=== PATIENT | male | born 1965 | race African-American/Black ===

== ENCOUNTER → 2017-01-15 | Emergency (ER) | payer MEDICAID, OTHER ==
[~2017-01-15] VITALS: Ht 170.2 cm; Wt 72.6 kg
[~2017-01-15] MED LIST: GUAIFENESIN1200 MG PO; MULTIVITAMINS1 EAC2 ORAL; PROMETHAZINE-C118 M1 ORAL; TYLENOL EXTRA500 MG ORAL; ZANTAC150 MG ORAL
[2017-01-15 11:39] VITALS: BP 125/74
[2017-01-15 13:15] LABS: BASOPHILS % (AUTO) 0.9 % (0.0-2.0); EOSINOPHILS % (AUTO) 1.9 % (0.0-3.0); MEAN CORPUSCULAR HEMOGLOBIN 29.2 PG (27.0-31.0); MEAN CORPUSCULAR HGB CONC 32.7 G/DL (32.0-36.0); MEAN CORPUSCULAR VOLUME 89 FL (80-99); MEAN PLATELET VOLUME 5.4 FL (6.5-10.1); MONOCYTES % (AUTO) 6.8 % (1.0-10.0); NEUTROPHILS % (AUTO) 59.4 % (45.0-75.0); PLATELET COUNT 283 K/UL (150-450); RED BLOOD COUNT 4.92 M/UL (4.70-6.10); RED CELL DISTRIBUTION WIDTH 12.6 % (11.6-14.8); WHITE BLOOD COUNT 7.4 K/UL (4.8-10.8)
[2017-01-15 13:32] LABS: ALANINE AMINOTRANSFERASE 18 U/L (3-41); ALBUMIN/GLOBULIN RATIO 1.1 (1.0-2.7); ANION GAP 16 (5-15); ASPARTATE AMINO TRANSFERASE 19 U/L (5-40); CALCIUM 9.5 mg/dL (8.6-10.2); CARBON DIOXIDE 25 mEQ/L (20-30); CHLORIDE 100 mEQ/L (98-107); GLOMERULAR FILTRATION RATE > 60 mL/min (>60); HEMOLYSIS 7; POTASSIUM 3.8 mEQ/L (3.4-4.9); SODIUM 141 mEQ/L (135-145); TOTAL PROTEIN 7.2 g/dL (6.6-8.7)
--- NOTE | 2017-01-15 13:35 | Emergency Room Report ---
History of Present Illness General Chief Complaint: General Complaint Source: Patient Present Illness HPI 51 YO male presents to the ED c/o numbness and tingling in the bilateral hands and feet described as burning sensation that is 10/10 severity x 1 month , denies tenderness. denies hx of trauma or fall, denies erythema, reports feeling cold at times, denies fatigue , dizziness or lethargy. Pt also reports sore throat, non-productive cough, and runny nose with increased phlegm and congestion without fevers x 2 days. daughter also has URI symptoms. pt. denies hx of DM, denies neck or back injury. Pt. also states hx of GERD, and needs refill of zantac as his heart burn symptoms have been coming more frequently at night he has burning epigastric discomfort that radiates up into his throat. pt also reports episodic knee and ankle swelling that has been going on for over 5 years, no increased temperature to palpation, no erythema, no fall or trauma. Denies CP other than previous GERD burning sensation, Palpitations, LOC, AMS, rashes dizziness, Changes in Vision, Sensation, paresthesias, or a sudden severe headache. Pt. denies cardiac disease. Allergies: Coded Allergies: No Known Allergies (Unverified , 11/14/16) Patient History Past Medical History: see triage record Past Surgical History: none Pertinent Family History: none Immunizations: UTD Reviewed Nursing Documentation: PMH: Agreed, PSxH: Agreed Nursing Documentation-PMH Past Medical History: No History, Except For Review of Systems All Other Systems: negative except mentioned in HPI Physical Exam Vital Signs Date Time Temp Pulse Resp B/P Pulse Ox O2 Delivery O2 Flow Rate FiO2 01/15/17 11:39 97.9 73 16 125/74 97 Room Air Sp02 EP Interpretation: reviewed, normal General Appearance: no apparent distress, alert, GCS 15, non-toxic Head: normocephalic, atraumatic Eyes: bilateral eye PERRL, bilateral eye normal inspection ENT: normal ENT inspection, normal pharynx, no angioedema, normal voice, TMs + canals normal, uvula midline, moist mucus membranes, nasal congestion, pharyngeal erythema, other - cobble stoning appearance, no exudates, clear rhinorrhea noted, no LAD Neck: normal inspection, full range of motion, no meningismus, no bony tend Respiratory: chest non-tender, lungs clear, normal breath sounds, no rhonchi, no respiratory distress, no accessory muscle use, no wheezing, speaking full sentences Cardiovascular #1: regular rate, rhythm, no edema Cardiovascular #2: 2+ radial (R), 2+ radial (L), 2+ dorsalis pedis (R), 2+ dorsalis pedis (L) Musculoskeletal: back normal, gait/station normal, normal range of motion, non- tender, no calf tenderness Neurologic: alert, oriented x3, responsive, motor strength/tone normal, sensory intact, cerebellar normal, normal gait, speech normal, other - equal database tester strength, equal pulses bilaterally, pt is NVI Psychiatric: judgement/insight normal, memory normal, mood/affect normal, no suicidal/homicidal ideation Skin: normal color, no rash, warm/dry, well hydrated, other - no pallor,good capillary refill, no evidence of PAD or venous stasis Lymphatic: no adenopathy Medical Decision Making PA Attestation Dr. Sheridan is my supervising Physician whom patient management has been discussed with. Diagnostic Impression: Primary Impression: Paresthesia of both feet Additional Impressions: Paresthesia of both hands Viral upper respiratory tract infection with cough ER Course Pt. presents to the ED c/o numbness and tingling in the bilateral hands and feet, in addition to sore throat, cough, and runny nose without fevers x 2 days. daughter also has URI symptoms. pt. denies hx of DM, denies neck or back injury. -Pt. also states hx of GERD, and needs refill of zantac as his heart burn symptoms have been coming more frequently at night. Ddx considered but are not limited to Neuropathy, paresthesia, electrolyte imbalance, cardiac dysrhythmia, stroke, DVT, cyanocobalamin deficiency. nerve palsy, neuritis, URI, pharyngitis, pneumonia Vital signs: are WNL, pt. is afebrile H&PE are most consistent with paresthesia, no evidence of anemia, or elevated glucose, no focal neurological deficit. there is evidence of post nasal drainage in the pharynx, mild erythema, no exudates, no fevers, lungs are CTA, no evidence of bacterial infeciton at this time. URI is most likely viral in etiology. ORDERS: -CMP: unremarkable no evidence of electrolyte abnormality or elevated glucose. -CBC: unremarkable no evidence of anemia ED INTERVENTIONS: -150mg Zantac - D/w pt. to follow up with Neurologist if conservative treatment does not relieve symptoms or for further evaluation. DISCHARGE: At this time pt. is stable for d/c to home. Will provide printed patient care instructions, and any necessary prescriptions. Care plan and follow up instructions have been discussed with the patient prior to discharge. Labs Test 01/15/17 12:45 White Blood Count 7.4 K/UL (4.8-10.8) Red Blood Count 4.92 M/UL (4.70-6.10) Hemoglobin 14.4 G/DL (14.2-18.0) Hematocrit 43.9 % (42.0-52.0) Mean Corpuscular Volume 89 FL (80-99) Mean Corpuscular Hemoglobin 29.2 PG (27.0-31.0) Mean Corpuscular Hemoglobin Concent 32.7 G/DL (32.0-36.0) Red Cell Distribution Width 12.6 % (11.6-14.8) Platelet Count 283 K/UL (150-450) Mean Platelet Volume 5.4 FL (6.5-10.1) Neutrophils (%) (Auto) 59.4 % (45.0-75.0) Lymphocytes (%) (Auto) 31.0 % (20.0-45.0) Monocytes (%) (Auto) 6.8 % (1.0-10.0) Eosinophils (%) (Auto) 1.9 % (0.0-3.0) Basophils (%) (Auto) 0.9 % (0.0-2.0) Sodium Level 141 mEQ/L (135-145) Potassium Level 3.8 mEQ/L (3.4-4.9) Chloride Level 100 mEQ/L (98-107) Carbon Dioxide Level 25 mEQ/L (20-30) Anion Gap 16 (5-15) Blood Urea Nitrogen 16 mg/dL (7-23) Creatinine 1.0 mg/dL (0.7-1.2) Estimat Glomerular Filtration Rate > 60 mL/min (>60) Glucose Level 99 mg/dL (74-106) Calcium Level 9.5 mg/dL (8.6-10.2) Total Bilirubin 0.4 mg/dL (0.0-1.2) Aspartate Amino Transf (AST/SGOT) 19 U/L (5-40) Alanine Aminotransferase (ALT/SGPT) 18 U/L (3-41) Alkaline Phosphatase 65 U/L (40-129) Total Protein 7.2 g/dL (6.6-8.7) Albumin 3.9 g/dL (3.5-5.2) Globulin 3.3 g/dL Albumin/Globulin Ratio 1.1 (1.0-2.7) Last Vital Signs Date Time Temp Pulse Resp B/P Pulse Ox O2 Delivery O2 Flow Rate FiO2 01/15/17 11:39 97.9 73 16 125/74 97 Room Air Disposition: HOME, SELF-CARE Condition: Stable Scripts Multivitamins* (MULTIVITAMINS*) 1 Each Tablet 1 TAB ORAL DAILY for 30 Days, #30 TAB 0 Refills Prov: Tamiko Zaldivar 01/15/17 Ranitidine Hcl* (ZANTAC*) 150 Mg Tablet 150 MG ORAL TWICE A DAY for 30 Days, #60 TAB Prov: Tamiko Zaldivar 01/15/17 Guaifenesin (Guaifenesin) 1,200 Mg Tab.er.12h 1200 MG PO BID, #14 TAB Prov: Tamiko Zaldivar 01/15/17 Codeine/Promethazine Hcl* (PROMETHAZINE-CODEINE SYRUP*) 118 Ml Syrup 5 ML ORAL Q6H Y for For Cough, #118 ML 0 Refills Prov: Tamiko Zaldivar 01/15/17 Referrals: [employer] [facility],REFERRIN (PCP) Patient Instructions: Paresthesia, [id number], Upper Respiratory Infection, Adult, [id number] Additional Instructions: Take medications as directed. Follow up with PCP in 3-5 days Return sooner to ED if new symptoms occur, or current symptoms become worse. Do not drink alcohol, drive, or operate heavy machinery while taking Cough Syrup as this may cause drowsiness. - Please note that this Emergency Department Report was dictated using [employer] support representative technology software, occasionally this can lead to erroneous entry secondary to interpretation by the dictation equipment. Tamiko Zaldivar Jan 15, 2017 13:35
[2017-01-15 13:56] VITALS: BP 125/74
== END | disposition home or self-care (01) ==
LOC: EMR 12:28
DX: R20.2 Paresthesia of skin (principal); J06.9 Acute upper respiratory infection, unspecified; R22.40 Localized swelling, mass and lump, unspecified lower limb
CPT/HCPCS: 36415; 80053; 85025; 99284